=== PATIENT | female | born 1960 | race Caucasian/White ===

== ENCOUNTER 2024-11-22 12:22 | Emergency (ER) | payer OTHER ==
[~2024-11-22] VITALS: Ht 172.7 cm; Wt 70.0 kg
[2024-11-22] MEDS: SODIUM CHLORIDE 0.9% 1,000 ML IV ONE (13:07)
[2024-11-22 13:15] LABS: BASOPHILS % 0.4 % (0.0-2.0); HEMATOCRIT. 39.2 % (36.0-48.0); HEMOGLOBIN. 12.8 g/dL (12.0-16.0); LYMPHOCYTES % 8.4 % (20.0-50.0); MEAN CORPUSCULAR HEMOGLOBIN 28.8 pg (28.0-32.0); MEAN CORPUSCULAR HGB CONC 32.6 g/dL (31.0-37.0); MEAN CORPUSCULAR VOLUME 88.5 fL (81.0-99.0); MEAN PLATELET VOLUME 8.8 fl (7.4-10.4); MONOCYTES % 5.2 % (2.0-8.0); PLATELET 221 x1000/uL (130-400); RED BLOOD CELL COUNT 4.43 mill/uL (4.2-5.4); RED CELL DISTRIBUTION WIDTH 15.3 % (11.6-14.6); WHITE BLOOD COUNT 5.9 x1000/uL (4.5-11.0)
[2024-11-22 13:21] LABS: CHLORIDE 107 mEq/L (98-107); SODIUM 142 mEq/L (136-145)
[2024-11-22 13:22] LABS: CALCIUM 9.9 mg/dL (8.7-10.4); CARBON DIOXIDE 23 mEq/L (21-32)
[2024-11-22] MEDS: MAGNESIUM 2 G PREMIX 50 ML IV ONE (13:24)
[2024-11-22] MEDS: METHYLPREDNISOLONE SOD SUCC 125MG/2ML (ACT-O-VIAL) IV ONE (13:24)
[2024-11-22 13:27] LABS: CREATININE 0.8 mg/dL (0.6-1.0); GLUCOSE 265 mg/dL (70-105); UREA NITROGEN BLOOD 23 mg/dL (9-23)
[2024-11-22 13:43] LABS: BETA HYDROXYBUTYRATE 2.6 mMol/L (0.0-0.3)
[2024-11-22] MEDS: IPRATROPIUM/ALBUTEROL 0.5-3(2.5)MG/3ML NEB HHN ONE (14:00)
[2024-11-22 14:01] VITALS: PULSE 78; RESP 16; O2SAT 98
[2024-11-22 14:20] VITALS: BP 134/64; PULSE 88; RESP 18; O2SAT 98
[2024-11-22] MEDS: MECLIZINE 25MG TABLET PO ONE (16:14)
== END 2024-11-22 17:06 | disposition home or self-care (01) ==
LOC: ER 12:22
DX: E11.65 Type 2 diabetes mellitus with hyperglycemia (principal); R53.1 Weakness; R42 Dizziness and giddiness; Z79.4 Long term (current) use of insulin; Z20.822 Contact with and (suspected) exposure to COVID-19
CPT/HCPCS: 80048; 82010; 85025; 87804 ×2; 36415; 94640; 96365; 96375; 99284; 87426; J8597; J3475; J2919; Z7610 ×3; J7030